=== PATIENT | male | born 1985 | race Caucasian/White ===

== ENCOUNTER → 2024-05-21 13:00 | Outpatient (REF) | payer OTHER, SELFPAY | LOC: RCS 13:00 | PROVIDERS: ATTENDING PHYSICIAN Nurse Practitioner; FAMILY PHYSICIAN Nurse Practitioner | DX: R07.89 Other chest pain (principal) | CPT/HCPCS: 93017 ==

== ENCOUNTER → 2025-02-13 16:09 | Outpatient (REF) | payer OTHER, SELFPAY | LOC: RCS 16:09 | PROVIDERS: ATTENDING PHYSICIAN Nurse Practitioner; FAMILY PHYSICIAN Family Medicine | DX: I48.0 Paroxysmal atrial fibrillation (principal); R00.2 Palpitations; R42 Dizziness and giddiness | CPT/HCPCS: 93306 ==